=== PATIENT | female | born 1995 | race Asian ===

== ENCOUNTER → 2022-06-22 | Outpatient (CLI) | payer BC ==
[2022-06-22 17:07] LABS: CLARITY URINE CLEAR (CLEAR); COLOR URINE YELLOW (YELLOW); KETONES URINE NEGATIVE (NEGATIVE); LEUKOCYTE ESTERASE URINE 1+ (NEGATIVE); NITRITE URINE NEGATIVE (NEGATIVE); OCCULT BLOOD URINE NEGATIVE (NEGATIVE); PROTEIN URINE NEGATIVE (NEGATIVE); SPECIFIC GRAVITY URINE 1.005 (1.005-1.030); UROBILINOGEN URINE 0.2 E.U./dL (0.2-1.0)
[2022-06-22 17:24] LABS: BASOPHILS % 0.5 % (0.0-2.0); EOSINOPHILS % 0.9 % (0.0-5.0); HEMATOCRIT. 38.7 % (36.0-48.0); HEMOGLOBIN. 12.9 g/dL (12.0-16.0); LYMPHOCYTES % 22.9 % (20.0-50.0); MEAN CORPUSCULAR VOLUME 90.3 fL (81.0-99.0); MEAN PLATELET VOLUME 9.5 fl (7.4-10.4); MONOCYTES % 5.1 % (2.0-8.0); NEUTROPHILS % 70.6 % (40.0-76.0); PLATELET 203 x1000/uL (130-400); RED BLOOD CELL COUNT 4.29 mill/uL (4.2-5.4); RED CELL DISTRIBUTION WIDTH 13.5 % (11.6-14.6)
[2022-06-22 17:35] LABS: CHLORIDE 104 mEq/L (98-107)
[2022-06-22 17:54] LABS: FERRITIN 20 ng/mL (10-291)
[2022-06-22 17:58] LABS: C REACTIVE PROTEIN QUANT < 0.2 mg/L (0.0-3.0); HDL CHOLESTEROL 52 mg/dL (40-59); LDL CHOLESTEROL 79 mg/dL (5-100); T4 FREE 0.87 ng/dL (0.76-1.46); TOTAL IRON BINDING CAPACITY 247 ug/dL (250-450)
[2022-06-22 18:19] LABS: VITAMIN B12 SERUM 514 pg/mL (211-911)
== END | disposition home or self-care (01) ==
LOC: LAB 16:25
DX: Z00.00 Encounter for general adult medical examination without abnormal findings (principal)
CPT/HCPCS: 36415; 80053; 80061; 81003; 82306; 82607; 82728; 82746; 83036; 83540; 83550; 83735; 84439; 84443; 84481; 85025; 86140